=== PATIENT | female | born 1970 | race Caucasian/White ===

== ENCOUNTER → 2025-03-12 | Outpatient (CLI) | payer BC ==
--- NOTE | 2025-03-12 12:10 | CA ---
Exercise Stress Test Report Name: Jermaine Du Exam Date: 03/12/2025 09:09 Exam Location: [facility] Stress Ht (in): 65 Wt (lb): 117 BSA: 1.58 Ordering Phys: Jose Umana MD Referring Phys: Jose Umana MD Technologist: candido tang Age: 54 Gender: F : 1970 Procedure CPT: Indications: R07.9 CHEST PAIN, UNSPECIFIED ICD-10 Codes: Patient History: Chest pain and family history of heart disease. Medications: NONE,,, Meds past 24 hrs: Pretest Chest Pain: STRESS TEST Edwin Protocol Exercise Duration (min:sec): 04:[address] Depressions (mm): Angina Score: Rodriguez Score: Resting HR (bpm): 94 Peak HR (bpm): 144 Resting BP (mmHg): 122 / 77 Peak BP (mmHg): 166 / 95 MPHR: 164 Target HR: 139 % MPHR: 88 METS: 6.5 Total Dose: Peak Dose: Atropine: Double Product: 27149 BP Response: Stress Termination: TARGET HR REACHED/MAX EXERTION Stress Symptoms: TIRED Stress Summary: The patient's target heart rate was achieved, The hemodynamic response to exercise was normal ECG ANALYSIS Resting ECG: Sinus rhythm. Normal conduction. No arrhythmias. Nonspecific ST-T abnormality. Stress ECG: Equivocal. Ventricular premature contraction. CONCLUSIONS 1. Decreased exercise tolerance 2. Occasional single PVCs during exercise 3. Nondiagnostic electrocardiographic stress testing secondary to baseline EKG abnormality. 4. If clinically indicated and imaging stress test will be helpful Dr. Madhu Rocha MD (Electronically Signed) Final Date: 12 March 2025 12:09
== END | disposition home or self-care (01) ==
LOC: RADNMMAIN 08:46
PROVIDERS: ATTEND Family Medicine
DX: I49.3 Ventricular premature depolarization (principal); R94.31 Abnormal electrocardiogram [ECG] [EKG]
CPT/HCPCS: 93017